=== PATIENT | male | born 1995 | race Hispanic/Latino ===

== ENCOUNTER 2017-11-12 11:29 | Emergency (ER) | payer SELFPAY ==
--- NOTE | 2017-11-12 14:02 | RAD ---
PA AND LATERAL CHEST: Date: 11/12/17 HISTORY: Cough. FINDINGS: The cardiac silhouette and pulmonary vasculature are within normal limits. Lungs are clear. There is slight left convex curvature of the thoracic spine. IMPRESSION: No acute cardiopulmonary process. ] POS: [facility]
== END 2017-11-12 12:49 | disposition home or self-care (01) ==
LOC: ERS 11:29
DX: R07.89 Other chest pain (principal)
CPT/HCPCS: 71046

== ENCOUNTER 2018-03-09 03:51 | Emergency (ER) | payer SELFPAY ==
[2018-03-09] MEDS ORDERED: HYDROcodone/Acetaminophen 5/325 mg Tablet ONE (05:46)
--- NOTE | 2018-03-09 08:02 | RAD ---
THREE VIEWS OF THE LEFT HAND: DATE: 03/09/2018. COMPARISON: None. HISTORY: Pain. FINDINGS: No displaced fracture or dislocation. IMPRESSION: No acute findings. POS: [facility]
--- NOTE | 2018-03-09 08:11 | RAD ---
FOUR VIEWS LEFT KNEE: DATE: 03/09/2018. COMPARISON: None. HISTORY: Fall, trauma, pain. FINDINGS: No displaced fracture or dislocation. No knee joint effusion. IMPRESSION: No acute findings. POS: [facility]
--- NOTE | 2018-03-09 08:11 | RAD ---
FRONTAL AND LATERAL IMAGING LEFT TIBIA AND FIBULA: DATE: 03/09/2018. COMPARISON: None. HISTORY: Fall, injury, pain. FINDINGS: There is soft tissue swelling lateral to the distal left fibula/lateral malleolus. Obliquely oriente d distal left fibular fracture noted. Dedicated left ankle series advised. IMPRESSION: Fracture of the distal left fibula with overlying soft tissue swelling. POS: [facility]
--- NOTE | 2018-03-09 08:58 | RAD ---
THREE VIEWS OF THE LEFT ANKLE: DATE: 03/09/2018. COMPARISON: None. HISTORY: Injury, trauma, pain. FINDINGS: Obliquely oriented distal left fibular fracture noted extending into the region of the ankle joint. Prominent overlying soft tissue swelling seen laterally. Prominent ankle joint effusion on lateral v iew. No dislocation or additional fracture is seen. IMPRESSION: Distal left fibular fracture. POS: [facility]
== END 2018-03-09 05:55 | disposition home or self-care (01) ==
LOC: ERS 03:51
DX: S82.832A Other fracture of upper and lower end of left fibula, initial encounter for closed fracture (principal); W01.0XXA Fall on same level from slipping, tripping and stumbling without subsequent striking against object, initial encounter
CPT/HCPCS: 27786